=== PATIENT | female | born 1990 | race African-American/Black ===

== ENCOUNTER 2017-02-04 15:43 | Emergency (ER) | payer OTHER ==
[2017-02-04 16:47] LABS: HEMOGLOBIN 10.6 gm/dl (12.3-15.3); RED BLOOD COUNT 4.04 M/UL (4.00-5.10); WHITE BLOOD COUNT 10.7 K/UL (4.5-11.0)
[2017-02-04 17:04] LABS: BUN/CREATININE RATIO 16 (0-10)
== END 2017-02-04 18:20 | disposition home or self-care (01) ==
LOC: ER1 15:43
PROVIDERS: Emergency Medicine
DX: M25.561 Pain in right knee (principal); Z88.5 Allergy status to narcotic agent; Z88.6 Allergy status to analgesic agent
CPT/HCPCS: 36415; 80048; 85027; 85610; 85730; 99283